=== PATIENT | female | born 1990 | race African-American/Black ===

== ENCOUNTER 2023-07-20 12:57 | Emergency (ER) | payer OTHER, MEDICAID ==
[2023-07-20 13:10] VITALS: BP 124/85; PULSE 87
[2023-07-20] MEDS: Acetaminophen 500 MG Tab PO ONE (13:29)
== END 2023-07-20 14:37 | disposition home or self-care (01) ==
LOC: CC.ED 12:57
DX: S00.83XA Contusion of other part of head, initial encounter (principal); W50.0XXA Accidental hit or strike by another person, initial encounter
CPT/HCPCS: 70486; 99283; A9270-GY